=== PATIENT | male | born 1995 | race Caucasian/White ===

== ENCOUNTER 2018-08-16 08:35 | Emergency (ER) | payer OTHER ==
[~2018-08-16] VITALS: Ht 175.3 cm; Wt 65.8 kg
[2018-08-16 08:46] VITALS: BP 117/40
[2018-08-16] MEDS ORDERED: MELO7.5T29 PO (09:06)
[2018-08-16] MEDS ORDERED: CLIN150C14 PO (09:06)
--- NOTE | 2018-08-16 09:07 | PHYS DOC ---
Past History Past Medical History: Other Additional Past Medical Histor: drug abuse-on suboxone therapy Past Surgical History: No Surgical History Smoking: Cigarettes Additional Smoking Information: 1 CARTON A WEEK Alcohol Use: None Drug Use: None Adult General Chief Complaint Chief Complaint: MULTIPLE COMPLAINTS HPI HPI Patient is a 43-year-old male presents with diffuse jaw pain for the past 2 weeks he was seen by his primary care team 2 days ago and started on Augmentin. He reports no significant improvement in the discomfort. Notes that he's had a tender 15 pound weight loss due to inability to eat with the pain. No nausea or vomiting. No diarrhea. Some subjective fevers. He is not on any pain medication other than his Suboxone or previous narcotic dependence therapy. Nothing makes the discomfort better or worse.[] Review of Systems Review of Systems Constitutional: Denies fever or chills [] Eyes: Denies change in visual acuity, redness, or eye pain [] HENT: Denies nasal congestion or sore throat [] Respiratory: Denies cough or shortness of breath [] Cardiovascular: No chest pain or palpitations[] GI: Denies abdominal pain, nausea, vomiting, bloody stools or diarrhea [] : Denies dysuria or hematuria [] Musculoskeletal: Denies back pain or joint pain [] Integument: Denies rash or skin lesions [] Neurologic: Denies headache, focal weakness or sensory changes [] Endocrine: Denies polyuria or polydipsia [] All other systems were reviewed and found to be within normal limits, except as documented in this note. Allergies Allergies Allergies Coded Allergies Type Severity Reaction Last Updated Verified No Known Drug Allergies 08/16/18 No Physical Exam Physical Exam Constitutional: Well developed, well nourished, no acute distress, non-toxic appearance. [] HENT: Normocephalic, atraumatic, bilateral external ears normal, oropharynx moist, no oral exudates, nose normal. Widespread dental disease. No specific tenderness to percussion, no drainable abscess noted, no tongue protrusion. [] Eyes: PERRLA, EOMI, conjunctiva normal, no discharge. [] Neck: Normal range of motion, no tenderness, supple, no stridor. No significant cervical lymphadenopathy. No nuchal rigidity. [] Cardiovascular:Heart rate regular rhythm, no murmur [] Lungs & Thorax: Bilateral breath sounds clear to auscultation [] Abdomen: Bowel sounds normal, soft, no tenderness, no masses, no pulsatile masses. [] Skin: Warm, dry, no erythema, no rash. [] Back: No tenderness, no CVA tenderness. [] Extremities: No tenderness, no cyanosis, no clubbing, ROM intact, no edema. [] Neurologic: Alert and oriented X 3, normal motor function, normal sensory function, no focal deficits noted. [] Psychologic: Affect normal, judgement normal, mood normal. [] Current Patient Data Vital Signs Vital Signs Date Time Temp Pulse Resp B/P (MAP) Pulse Ox O2 Delivery O2 Flow Rate FiO2 08/16/18 08:46 97.7 76 20 100 Room Air EKG EKG [] Radiology/Procedures Radiology/Procedures [] Course & Med Decision Making Course & Med Decision Making Pertinent Labs and Imaging studies reviewed. (See chart for details) Medical decision making: There is no evidence of a drainable abscess, no evidence of ANUG nor Jeff's angina. No evidence of meningitis or encephalitis. We will attempt better outpatient pain management. Will also prescribe "just in case" antibiotics to start in 48 hours if there is no improvement with the Augmentin.[] Dragon Disclaimer Dragon Disclaimer This electronic medical record was generated, in whole or in part, using a voice recognition dictation system. Departure Departure: Impression: Primary Impression: Pain, dental Disposition: 01 HOME, SELF-CARE Condition: IMPROVED Referrals: PCP,NO (PCP) Patient Instructions: Dental Pain Additional Instructions: Drink plenty of fluids. Do not smoke again. Continue your medication as prescribed. If no improvement in 2 days take the clindamycin as prescribed. Return to the ER if worsening pain or any other concerns. Scripts Clindamycin Hcl (CLINDAMYCIN HCL) 150 Mg Capsule 2 CAP PO QID for dental infection, #80 CAP Prov: TICO BERKOWITZ DO 08/16/18 Meloxicam (MELOXICAM) 7.5 Mg Tablet 7.5 MG PO DAILY for PAIN, #20 TAB Prov: TICO BERKOWITZ DO 08/16/18 TICO BERKOWITZ DO Aug 16, 2018 09:07
== END 2018-08-16 09:15 | disposition home or self-care (01) ==
LOC: ER 08:35
DX: K04.99 Other diseases of pulp and periapical tissues (principal); K08.89 Other specified disorders of teeth and supporting structures; F17.210 Nicotine dependence, cigarettes, uncomplicated
CPT/HCPCS: 99283

== ENCOUNTER 2018-08-18 02:07 | Emergency (ER) | payer OTHER ==
[~2018-08-18] VITALS: Ht 175.3 cm; Wt 80.0 kg
[~2018-08-18 02:07] MED LIST: CLIN150C14 PO; MELO7.5T29 PO
[2018-08-18] MEDS ORDERED: cefTRIAXone SODIUM 1 GM VIAL ONE ×2 (02:43→02:50)
[2018-08-18] MEDS ORDERED: VANCOMYCIN 1 GM VIAL. ONE (02:43)
[2018-08-18] MEDS ORDERED: IV NORMAL SALINE 50ML 50 ML ONE ×2 (02:44→02:50)
[2018-08-18] MEDS ORDERED: IV NORMAL SALINE 250ML 250 ML ONE (02:45)
[2018-08-18] MEDS ORDERED: IV NORMAL SALINE 1,000ML 1,000 ML IV SCH (02:45)
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
[2018-08-18] MEDS ORDERED: MIDAZOLAM HCL PF 5 MG/5 ML VIAL. IV ONE (03:00)
[2018-08-18] MEDS ORDERED: PROPOFOL 10,000 MCG/ML (20ML) VIAL IV ONE ×2 (03:00)
[2018-08-18] MEDS ORDERED: ETOMIDATE 40 MG/20 ML VIAL. IV ONE (03:00)
[2018-08-18] MEDS ORDERED: SUCCINYLCHOLINE 200 MG/10 ML VIAL. IV ONE (03:00)
[2018-08-18] MEDS ORDERED: VANCOMYCIN 1 GM in IV NORMAL SALINE 250ML 250 ML IV ONE (03:00)
[2018-08-18 03:01] LABS: BASO # 0.2 x10^3/uL (0.0-0.2); BASO % 2 % (0-3); EOS % 0 % (0-3); HEMATOCRIT 38.5 % (39.0-53.0); HEMOGLOBIN 13.1 g/dL (13.0-17.5); LYMPH # 2.5 x10^3/uL (1.0-4.8); LYMPH % 17 % (24-48); MEAN CORPUSCULAR HEMOGLOBIN 30 pg (25-35); MEAN CORPUSCULAR HGB CONC 34 g/dL (31-37); MEAN CORPUSCULAR VOLUME 87 fL (79-100); MONO # 1.3 x10^3/uL (0.0-1.1); MONO % 9 % (0-9); NEUT # 10.2 x10^3uL (1.8-7.7); NEUT % 72 % (31-73); PLATELET COUNT 271 x10^3/uL (140-400); RED BLOOD COUNT 4.41 x10^6/uL (4.30-5.70); RED CELL DISTRIBUTION WIDTH 13.9 % (11.5-14.5); WHITE BLOOD COUNT 14.2 x10^3/uL (4.0-11.0)
[2018-08-18 03:10] LABS: BACTERIA,URINE 0 /HPF (0-FEW); BILIRUBIN,URINE NEG (NEG); CLARITY,URINE CLEAR; COLOR,URINE YELLOW; GLUCOSE,URINE NEG (NEG); NITRITE,URINE NEG (NEG); RBC,URINE 0 /HPF (0-2); UROBILINOGEN,URINE 1 mg/dL (0.2 mg/dL); WBC,URINE OCC /HPF (0-4)
[2018-08-18 03:23] LABS: AMPHETAMINE/METHAMPHETAMINE NEG (NEG); BARBITURATES NEG (NEG); BENZODIAZEPINES NEG (NEG); CANNABINOIDS POS (NEG); COCAINE NEG (NEG); METHADONE NEG (NEG); OPIATES POS (NEG); PHENCYCLIDINE NEG (NEG)
[2018-08-18 03:27] LABS: ALBUMIN 3.3 g/dL (3.4-5.0); CALCIUM 8.3 mg/dL (8.5-10.1); GFR 91.8; MAGNESIUM 1.9 mg/dL (1.8-2.4); POTASSIUM 3.3 mmol/L (3.5-5.1); TOTAL BILIRUBIN 0.3 mg/dL (0.2-1.0); TOTAL PROTEIN 6.7 g/dL (6.4-8.2)
--- NOTE | 2018-08-18 03:27 | RAD ---
Chest AP portable at 0236: Reason for examination: Altered mental status. Endotracheal tube is present with tip approximately 2.3 cm above the bradley. This should be withdrawn approximately 1 cm. NG tube is present with the tip lying below the level of the hemidiaphragms. The heart size is normal. Mediastinum is unremarkable. Lung charles are clear. No acute bony abnormalities are seen. IMPRESSION: Endotracheal tube tip 2.3 cm above the bradley. This should be withdrawn approximately 1 cm. No acute cardiopulmonary disease evident. CT head without contrast: Axial images were obtained through the brain. No contrast was administered. Exposure: One or more of the following individualized dose reduction techniques were utilized for this examination: 1. Automated exposure control 2. Adjustment of the mA and/or kV according to patient size 3. Use of iterative reconstruction technique. Ventricular systems are symmetric and not dilated. No midline shift is seen. There is no evidence of intracranial hemorrhage, infarct, mass or edema. No abnormalities of seen at the orbits. The paranasal sinuses and mastoid air cells are clear. No abnormality seen in the skull. IMPRESSION: No acute intracranial abnormality evident. Electronically signed by: Phyllis Samson MD (08/18/2018 3:25 AM) [id number]
[2018-08-18] MEDS ORDERED: CLINDAMYCIN 900MG PREMIX 50 ML IV ONE (03:30)
[2018-08-18] MEDS ORDERED: MIDAZOLAM HCL PF 5 MG/5 ML VIAL. ONE ×5 (03:38→04:02)
[2018-08-18 04:13] LABS: CSF PROTEIN 164.9 mg/dL (15.0-45.0)
[2018-08-18] MEDS ORDERED: IV NORMAL SALINE 500ML 500 ML IV ONE (04:15)
[2018-08-18] MEDS ORDERED: IV NORMAL SALINE 1,000ML 1,000 ML IV ONE (04:15)
[2018-08-18 04:23] LABS: BGAS PH 7.33 (7.35-7.46)
--- NOTE | 2018-08-18 04:42 | EKG ---
[address] [address] Test Date: 2018-08-18 Test Time: 04:09:10 Pat Name: MUSHTAQ ROWLEY Department: Room: Gender: M Sensitizer: : 1995 Requested By: ANAIS FERNÁNDEZ Order Number: [id number] Reading MD: Measurements Intervals [place] Rate: 68 P: 66 VA: 170 QRS: 59 QRSD: 78 T: 51 QT: 378 QTc: 406 Interpretive Statements SINUS RHYTHM QRS(T) CONTOUR ABNORMALITY CONSIDER ANTEROSEPTAL MYOCARDIAL DAMAGE POSSIBLY ABNORMAL ECG RI6.01 No previous ECG available for comparison
[2018-08-18 05:00] VITALS: BP 126/68
[2018-08-18] MEDS ORDERED: MIDAZOLAM 100 MG/100 ML IV ONE (05:00)
[2018-08-18] MEDS ORDERED: SODIUM CHLORIDE IV ONE (05:00)
[2018-08-18] MEDS ORDERED: PROPOFOL 100 ML IV ONE ×2 (05:03→05:23)
[2018-08-18 05:15] LABS: CSF CLARITY CLEAR; CSF COLOR COLORLESS; CSF MON % 82 %; CSF PMN % 18 %; CSF RBC COUNT 50; CSF WBC COUNT 315
[2018-08-21 17:11] LABS: HERPES SIMPLEX TYPE 1 Negative (Negative); HERPES SIMPLEX TYPE 2 Negative (Negative)
== END 2018-08-18 05:15 | disposition short-term general hospital (02) ==
LOC: ER 02:10
DX: R41.82 Altered mental status, unspecified (principal); F19.10 Other psychoactive substance abuse, uncomplicated; F17.210 Nicotine dependence, cigarettes, uncomplicated
CPT/HCPCS: 31500; 36415; 36600; 43762; 51701; 62270; 70450; 71045; 80053; 80307; 81001; 82140; 82550; 82803; 82945; 83605; 83690; 83735; 84157; 84484; 85025; 85610; 85730; 87040; 87070; 87205; 87529; 89051; 93005; 96365; 96368; 96375; 99291; 99292; J0330; J0696; J2250; J2704; J3370; J3490; J7040; J7050; 94002; J7030

== ENCOUNTER 2018-09-16 10:51 | Emergency (ER) | payer OTHER ==
[~2018-09-16] VITALS: Ht 175.3 cm; Wt 61.2 kg
[2018-09-16] MEDS ORDERED: IV NORMAL SALINE 1,000ML 1,000 ML IV SCH (11:03)
[2018-09-16] MEDS ORDERED: ONDANSETRON PF 4 MG/2 ML VIAL. IV ONE (11:15)
--- NOTE | 2018-09-16 11:15 | PHYS DOC ---
Past History Past Medical History: Other Additional Past Medical Histor: drug abuse-on suboxone therapy Past Surgical History: No Surgical History Smoking: Cigarettes Alcohol Use: None Drug Use: None Adult General Chief Complaint Chief Complaint: FATIGUE HPI HPI Patient is a 23-year-old male who presents with complaint of feeling severe fatigue with body aches and fever at home. Patient had recently been admitted into the hospital for meningitis and states that symptoms are nothing like when he had had the meningitis. He also indicates that he has noticed that many of his lymph nodes are very swollen.[] Review of Systems Review of Systems Constitutional: Positive fever and chills [] Respiratory: Denies cough or shortness of breath [] Cardiovascular: No additional information not addressed in HPI [] GI: Denies abdominal pain. Reports nausea without vomiting. [] Musculoskeletal: Complains of diffuse body aches/pain [] Integument: Denies rash or skin lesions [] Neurologic: Denies headache, focal weakness or sensory changes [] All other systems were reviewed and found to be within normal limits, except as documented in this note. Current Medications Current Medications Current Medications Medications (Trade) Dose Ordered Sig/Patria Start Time Stop Time Status Last Admin Dose Admin Ondansetron HCl (Zofran) 4 mg 1X ONCE 09/16/18 11:15 09/16/18 11:16 Sodium Chloride 1,000 ml @ 1,000 mls/hr Q1H 09/16/18 11:03 09/16/18 12:02 Allergies Allergies Allergies Coded Allergies Type Severity Reaction Last Updated Verified No Known Drug Allergies 08/16/18 No Physical Exam Physical Exam Constitutional: Well developed, well nourished, no acute distress, non-toxic appearance. [] HENT: Normocephalic, atraumatic, bilateral external ears normal, oropharynx moist, no oral exudates, nose normal. [] Eyes: PERRLA, EOMI, conjunctiva normal, no discharge. [] Neck: Normal range of motion, no tenderness, supple, with significant anterior and posterior cervical lymphadenopathy. [] Cardiovascular:Heart rate regular rhythm, no murmur [] Lungs & Thorax: Bilateral breath sounds clear to auscultation [] Abdomen: Bowel sounds normal, soft, no tenderness. [] Skin: Warm, dry, no erythema, no rash. [] Extremities: No tenderness, no cyanosis, no clubbing, ROM intact, no edema. [] Neurologic: Alert and oriented X 3, no focal deficits noted. [] EKG EKG [] Radiology/Procedures Radiology/Procedures [] Course & Med Decision Making Course & Med Decision Making Pertinent Labs and Imaging studies reviewed. (See chart for details) [] Dragon Disclaimer Dragon Disclaimer This electronic medical record was generated, in whole or in part, using a voice recognition dictation system. Departure Departure: Impression: Primary Impression: Fatigue Additional Impression: Lymphadenopathy Disposition: HOME, SELF-CARE Condition: STABLE Referrals: PCP,NO (PCP) Patient Instructions: Fatigue Scripts Amoxicillin/Potassium Clav (AUGMENTIN [id number] TABLET) 1 Each Tablet 1 TAB PO BID for infection, #20 TAB Prov: VALERI PETERSON Jr. DO 09/16/18 Problem Qualifiers Primary Impression: Fatigue Fatigue type: unspecified Qualified Codes: R53.83 - Other fatigue VALERI PETERSON Jr. DO Sep 16, 2018 11:15
[2018-09-16 11:57] LABS: BASO # 0.1 x10^3/uL (0.0-0.2); BASO % 1 % (0-3); EOS # 0.2 x10^3/uL (0.0-0.7); EOS % 3 % (0-3); HEMATOCRIT 47.5 % (39.0-53.0); HEMOGLOBIN 15.6 g/dL (13.0-17.5); LYMPH % 34 % (24-48); MEAN CORPUSCULAR HEMOGLOBIN 29 pg (25-35); MEAN CORPUSCULAR HGB CONC 33 g/dL (31-37); MEAN CORPUSCULAR VOLUME 89 fL (79-100); MONO # 0.5 x10^3/uL (0.0-1.1); MONO % 8 % (0-9); NEUT # 3.1 x10^3uL (1.8-7.7); NEUT % 54 % (31-73); PLATELET COUNT 197 x10^3/uL (140-400); RED BLOOD COUNT 5.35 x10^6/uL (4.30-5.70); RED CELL DISTRIBUTION WIDTH 14.4 % (11.5-14.5); WHITE BLOOD COUNT 5.8 x10^3/uL (4.0-11.0)
[2018-09-16 12:01] LABS: MONONUCLEOSIS PATIENT NEGATIVE (NEGATIVE)
[2018-09-16 12:15] VITALS: BP 108/57
[2018-09-16 12:16] LABS: CALCIUM 9.5 mg/dL (8.5-10.1); CREATININE 0.8 mg/dL (0.7-1.3); DIRECT BILIRUBIN 0.1 mg/dL (0.0-0.2); GFR 118.8; POTASSIUM 4.1 mmol/L (3.5-5.1); TOTAL BILIRUBIN 0.4 mg/dL (0.2-1.0)
[2018-09-16 13:42] LABS: BACTERIA,URINE 0 /HPF (0-FEW); BILIRUBIN,URINE NEG (NEG); CLARITY,URINE CLEAR; COLOR,URINE YELLOW; GLUCOSE,URINE NEG (NEG); NITRITE,URINE NEG (NEG); RBC,URINE 0 /HPF (0-2); SQUAMOUS EPITHELIAL CELL,UR OCC /LPF; UROBILINOGEN,URINE 0.2 mg/dL (0.2 mg/dL); WBC,URINE 0 /HPF (0-4)
[2018-09-16] MEDS ORDERED: IV NORMAL SALINE 50ML 50 ML ONE (13:44)
[2018-09-16] MEDS ORDERED: cefTRIAXone SODIUM 1 GM VIAL ONE (13:44)
[2018-09-16] MEDS ORDERED: AMOX1TAB61 PO (16:58)
== END 2018-09-16 17:00 | disposition home or self-care (01) ==
LOC: ER 10:51
DX: R53.83 Other fatigue (principal); R59.0 Localized enlarged lymph nodes; F17.210 Nicotine dependence, cigarettes, uncomplicated
CPT/HCPCS: 36415; 80048; 80076; 81001; 83605; 83735; 85025; 86308; 87040; 96365; 96366; 96375; 99285; J0696; J2405; J7030

== ENCOUNTER → 2019-10-22 | Outpatient (CLI) | payer OTHER ==
[~2019-10-22] MED LIST changes: +AMOX1TAB61 PO
[2019-10-22 16:32] LABS: BASO # 0.1 x10^3/uL (0.0-0.2); BASO % 1 % (0-3); EOS # 0.1 x10^3/uL (0.0-0.7); EOS % 1 % (0-3); HEMATOCRIT 40.2 % (39.0-53.0); HEMOGLOBIN 14.1 g/dL (13.0-17.5); LYMPH # 1.6 x10^3/uL (1.0-4.8); LYMPH % 24 % (24-48); MEAN CORPUSCULAR HEMOGLOBIN 31 pg (25-35); MEAN CORPUSCULAR HGB CONC 35 g/dL (31-37); MEAN CORPUSCULAR VOLUME 88 fL (79-100); MONO # 0.3 x10^3/uL (0.0-1.1); MONO % 5 % (0-9); NEUT # 4.6 x10^3uL (1.8-7.7); NEUT % 69 % (31-73); PLATELET COUNT 223 x10^3/uL (140-400); RED BLOOD COUNT 4.57 x10^6/uL (4.30-5.70); RED CELL DISTRIBUTION WIDTH 13.9 % (11.5-14.5); WHITE BLOOD COUNT 6.6 x10^3/uL (4.0-11.0)
[2019-10-22 16:45] LABS: ALBUMIN 3.8 g/dL (3.4-5.0); ALBUMIN/GLOBULIN RATIO 0.9 (1.0-1.7); CALCIUM 8.6 mg/dL (8.5-10.1); CREATININE 1.1 mg/dL (0.7-1.3); GFR 81.6; POTASSIUM 3.8 mmol/L (3.5-5.1); TOTAL BILIRUBIN 0.3 mg/dL (0.2-1.0); TOTAL PROTEIN 8.1 g/dL (6.4-8.2)
[2019-10-24 05:09] LABS: HCV ULTRA QUANT PCR HCV Not Detected IU/mL (.)
== END | disposition home or self-care (01) ==
LOC: LAB 16:05
PROVIDERS: ATTEND Internal Medicine Gastroenterology
DX: B18.2 Chronic viral hepatitis C (principal)
CPT/HCPCS: 36415; 80053; 85025; 87522

== ENCOUNTER 2020-08-29 12:16 | Emergency (ER) | payer BC, OTHER ==
[~2020-08-29] VITALS: Ht 175.3 cm; Wt 69.9 kg
[~2020-08-29 12:16] MED LIST changes: -CLIN150C14 PO; +CLIN150C15 PO
[2020-08-29] MEDS ORDERED: KETOROLAC 15 MG/ML VIAL. IVP ONE (12:45)
[2020-08-29] MEDS ORDERED: IV NORMAL SALINE 1,000ML 1,000 ML IV ONE (12:45)
[2020-08-29] MEDS ORDERED: diphenhydrAMINE 50 MG/ML VIAL IVP ONE (12:45)
[2020-08-29] MEDS ORDERED: PROCHLORPERAZINE 10 MG/2 ML VIAL. IV ONE (12:45)
--- NOTE | 2020-08-29 12:55 | PHYS DOC ---
Past History Past Medical History: Migraines Additional Past Medical Histor: drug abuse-on suboxone therapy (ELOY ZALDIVAR APRN) Past Surgical History: Other Additional Past Surgical Histo: LYMPH NODE REMOVAL R-ABDOMEN (ELOY ZALDIVAR APRN) Smoking: Cigarettes Additional Smoking Information: 1/2 PACK Alcohol Use: None Drug Use: None Social History Narrative: PAST METH/HEROIN ADDICTION, NONE FOR 1 MONTH (ELOY ZALDIVAR APRN) General Adult EDM: Chief Complaint: HEADACHE HPI: HPI: Patient is a 25 year old male who presents with frontal and temporal headache t hat started 3 days ago. Headache was preceded by blurred vision that has now resolved. Patient reports that headache has been constant, he rates it 8 out of 10, he has been taking ibuprofen at home. He last took ibuprofen 3 hours ago and reports that that did mildly relieve his pain. No aggravating factors. Along with his headache he is reporting nausea with decreased appetite, photophobia, phonophobia, difficulty concentrating. Patient denies fever, body aches, neck stiffness, vision changes, dizziness, altered mental status, tinnitus. He has a history of migraines and reports that the headache started out like his typical migraine but his migraines do not typically last this long. He reports that this is not the worst headache of his life. He has a history of meningitis approximately 2 years ago. Patient reports that he is on Suboxone currently and is a previous meth and heroin user, he reports that he has not used meth and/or heroin for approximately 2 months. (ELOY ZALDIVAR APRN) Review of Systems: Review of Systems: 14 body systems of the review of systems have been reviewed. See HPI for pertinent positive and negative responses, otherwise all other systems are negative, nonpertinent or noncontributory (ELOY ZALDIVAR APRN) Current Medications: Current Meds: Current Medications Medications (Trade) Dose Ordered Sig/[place] Start Time Stop Time Status Last Admin Dose Admin Diphenhydramine HCl (Benadryl) 25 mg 1X ONCE 08/29/20 12:45 08/29/20 12:46 UNV Ketorolac Tromethamine (Toradol 15mg Vial) 15 mg 1X ONCE 08/29/20 12:45 08/29/20 12:46 UNV Prochlorperazine Edisylate (Compazine) 10 mg 1X ONCE 08/29/20 12:45 08/29/20 12:46 UNV Sodium Chloride 1,000 ml @ 1,000 mls/hr 1X ONCE 08/29/20 12:45 08/29/20 13:44 UNV (ELOY ZALDIVAR APRN) Allergies: Allergies: Allergies Coded Allergies Type Severity Reaction Last Updated Verified No Known Drug Allergies 08/16/18 No (ELOY ZALDIVAR APRN) Physical Exam: PE: Constitutional: Well developed, well nourished, no acute distress, non-toxic appearance. [] HENT: Normocephalic, atraumatic, bilateral external ears normal, oropharynx moist, no oral exudates, nose normal. [] Eyes: PERRLA, EOMI, conjunctiva normal, no discharge. [] Neck: Normal range of motion, no tenderness, supple with no nuchal rigidity, no stridor. Negative Brudzinski test [] Cardiovascular:Heart rate regular rhythm, no murmur [] Lungs & Thorax: Bilateral breath sounds clear to auscultation [] Abdomen: Bowel sounds normal, soft, no tenderness, no masses, no pulsatile masses. [] Skin: Warm, dry, no erythema, no rash. [] Back: No tenderness [] Extremities: No tenderness, no cyanosis, no clubbing, ROM intact, no edema. [] Neurologic: Alert and oriented X 3, normal motor function, normal sensory function, no focal deficits noted. [] Psychologic: Affect normal, judgement normal, mood normal. [] (ELOY ZALDIVAR APRN) Current Patient Data: Vital Signs: Vital Signs Date Time Temp Pulse Resp B/P (MAP) Pulse Ox O2 Delivery O2 Flow Rate FiO2 08/29/20 12:20 97.6 89 20 135/52 (79) 100 Room Air (ELOY ZALDIVAR APRN) EKG: EKG: [] (ELOY ZALDIVAR APRN) Radiology/Procedures: Radiology/Procedures: [] (ELOY ZALDIVAR APRN) Heart Score: C/O Chest Pain: No Risk Factors: Risk Factors: DM, Current or recent (<one month) smoker, HTN, HLP, family history of CAD, obesity. Risk Scores: Score 0 - 3: 2.5% MACE over next 6 weeks - Discharge Home Score 4 - 6: 20.3% MACE over next 6 weeks - Admit for Clinical Observation Score 7 - 10: 72.7% MACE over next 6 weeks - Early Invasive Strategies (ELOY ZALDIVAR APRN) Course & Med Decision Making: Course & Med Decision Making Pertinent Labs and Imaging studies reviewed. (See chart for details) Patient was seen in the emergency department today for headache. He is also having symptoms of nausea, photophobia, phonophobia and visual changes similar to his classic migraine presentation. Vital signs are stable and physical exam is negative for meningeal signs no neck rigidity, no fever, negative Brudzinski's test despite his history of meningitis. Patient was given Benadryl, Compazine and Toradol for his headache symptoms. Following adm inistration of medications patient symptoms have resolved and upon reassessment patient is sleeping comfortably on the ER cot. I discussed further work-up for patient including lumbar puncture with supervising physician but given patient's symptoms, physical exam, and response to medications was determined not necessary at this time. Plan of care discussed with patient and he is agreeable. (ELOY ZALDIVAR APRN) Course & Med Decision Making I oversaw on the above date of service of this patient. This patient was evaluated, examined, treated, and dispositioned from the emergency department by the mid-level practitioner. I reviewed case with [employer] and despite history of meningitis, no concerning signs or symptoms were present that prompted need for further diagnostic work-up in ER setting and patient who responded to ER intervention provided. It was disclosed this might be an acute presentation more concerning pathology and so, strict return precautions were discussed. I reviewed note and agree to findings, plan of care, and disposition as stated. Electronically signed, Bee Gallardo DO (BEE GALLARDO DO) Manolo Disclaimer: Manolo Disclaimer: This electronic medical record was generated, in whole or in part, using a voice recognition dictation system. (ELOY ZALDIVAR APRN) Departure Departure: Impression: Primary Impression: Migraine Qualified Codes: G43.009 - Migraine without aura, not intractable, without status migrainosus Disposition: HOME / SELF CARE / HOMELESS Condition: GOOD Referrals: PCP,BOBY (PCP) Patient Instructions: Migraine Headache, [id number] Additional Instructions: Thank you for choosing [facility] - [place], [place] and allowing me to participate in your care. As we have discussed, your findings indicate that you are experiencing a migraine headache. As we have discussed, the treatment includes rest, ibuprofen.. Please follow up with your primary care provider tomorrow regarding your ER visit. If your symptoms worsen or you develop worsening of your headache, fever, neck stiffness, body aches, uncontrollable nausea or vomiting please return. ELOY ZALDIVAR APRN Aug 29, 2020 12:55 BEE GALLARDO DO Aug 30, 2020 08:23
[2020-08-29 13:52] VITALS: BP 107/55
== END 2020-08-29 14:01 | disposition home or self-care (01) ==
LOC: ER 12:16
DX: G43.909 Migraine, unspecified, not intractable, without status migrainosus (principal); F17.210 Nicotine dependence, cigarettes, uncomplicated; R41.82 Altered mental status, unspecified
CPT/HCPCS: 96361; 96374; 96375; 99284; J0780; J1200; J1885; J7030